=== PATIENT | male | born 1960 | race Caucasian/White ===

== ENCOUNTER 2019-06-05 19:09 | Emergency (ER) | payer MEDICARE, BC, SELFPAY ==
[2019-06-05 19:18] VITALS: BP 142/74; PULSE 97; RESP 22; TEMP 38; O2SAT 96
--- NOTE | 2019-06-05 20:12 | DI.US.S_ITS ---
PROCEDURE: US SCROTUM INDICATIONS: RIGHT TESTICULAR LUMP TECHNIQUE: Real-time scanning was performed of the scrotum and testicles, with image documentation. Color and pulse Doppler interrogation was performed of both testicles. COMPARISON: None. FINDINGS: Right: Testicle is normal in size at 2.6 x 2.7 x 2.9 cm, and homogenous in echotexture. Epididymis is normal in overall size and morphology. No varicoceles but there is a finding of increased arterial vascular flow within the right testis and a hydrocele that is moderately large in size. Overlying scrotal skin is mildly increased in thickness. Left: Testicle is normal in size at 2.3 x 3.0 x 3.5 cm, and homogeneous in echotexture. Epididymis is normal in overall size and morphology. No hydrocele or varicoceles. Overlying scrotal skin is normal in thickness. Doppler: Color and pulse Doppler demonstrate normal and symmetric arterial flow in both testicles. IMPRESSION: Right-sided orchitis with a moderately large right hydrocele, and hyperemia producing increased skin thickness along the scrotal wall on the right. No left-sided epididymitis or hydrocele is found. No suspicion for underlying testicular torsion or neoplasm. Dictated by: Saeed Trivedi M.D. on 06/06/2019 at 9:04 Approved by: Saeed Trivedi M.D. on 06/06/2019 at 9:07
--- NOTE | 2019-06-05 20:12 | ED.SKABFB ---
HPI - Skin/Abscess/Foreign Bdy General Chief complaint: Skin/Abscess/Foreign Body Stated complaint: abscess on scrotum Time Seen by Provider: 06/05/19 20:08 Source: patient Mode of arrival: wheelchair Limitations: no limitations History of Present Illness HPI narrative: Patient is a 58-year-old male who is a paraplegic and is confined to wheelchair. He states that he has had problems with decubitus pressure ulcers in the past. He states over the past couple days he has noticed a swelling in his scrotum. He has no feeling in this area. He was evaluated by his primary doctor who sent him to the emergency department for concerns of potential scrotal abscess. Related Data Previous Rx's Medication Instructions Recorded levofloxacin 500 mg PO DAILY 9 Days #9 tab 06/05/19 Allergies Allergy/AdvReac Type Severity Reaction Status Date / Time carbenicillin Allergy Difficulty Verified 06/05/19 19:22 [From Geocillin] Breathing clindamycin Allergy Rash Verified 06/05/19 19:22 Latex, Natural Rubber Allergy Rash Verified 06/05/19 19:22 Review of Systems Constitutional Denies fever(s) Cardiovascular Denies chest pain and Denies dyspnea Respiratory Denies dyspnea Genitourinary Comments: Swelling in his scrotum Neurologic Comments: No change in baseline neurologic status [facility] Medical History Paraplegia (Acute) Social History Smoking Status: Current some day smoker Social History Smoking Status: Current some day smoker Exam Initial Vital Signs Initial Vital Signs: Vital Signs Temperature 100.4 F H 06/05/19 19:18 Pulse Rate 97 H 06/05/19 19:18 Respiratory Rate 22 06/05/19 19:18 Blood Pressure 142/74 H 06/05/19 19:18 Pulse Oximetry 96 06/05/19 19:18 Const General: cooperative, comfortable and well developed Orientation: alert, awake and oriented x3 HENMT Head: normal to inspection and normocephalic Resp Effort & Inspection: normal respiratory effort Cardio Rate: regular rate External: circumcised Other: Patient with a thickened right side of the scrotum. There is a firm mass in the right hemiscrotum difficult to distinguish between the right testicle. No erythema around the area. Skin Other: Patient with a decubitus ulcer that is fairly superficial in the perineum. Neuro Other: Paraplegia Extrem General: capillary refill normal Course Orders Ordered: ED Orders 06/05/19 20:12 US scrotum Stat 06/05/19 20:53 Blood Culture Stat Complete Blood Count AUTO DIFF Stat Comprehensive Metabolic Panel Stat Lactate (Lactic Acid) Stat Lipase Stat Partial Thromboplastin Time Stat Procalcitonin Stat Prothrombin Time INR Stat Discontinued Medications Sodium Chloride (Normal Saline 0.9%) 1,000 mls @ 1,000 mls/hr IV BOLUS ONE Stop: 06/05/19 20:55 Last Admin: 06/05/19 20:30 Dose: Not Given Levofloxacin (Levaquin) 500 mg PO NOW ONE Stop: 06/05/19 23:20 Last Admin: 06/05/19 23:27 Dose: 500 mg Vital Signs - 8 hr 06/05/19 19:18 06/05/19 21:00 06/05/19 21:30 Temperature 100.4 F H Pulse Rate 97 H 97 H 95 H Respiratory Rate 22 19 19 Blood Pressure 142/74 H Blood Pressure [Right Arm] 139/72 121/66 Pulse Oximetry 96 95 91 06/05/19 22:31 Temperature Pulse Rate 85 Respiratory Rate 18 Blood Pressure Blood Pressure [Right Arm] 122/64 Pulse Oximetry 92 MDM - Skin/Abscess/Foreign Bdy Lab Data Attestation: I reviewed the patient's lab results. Result diagrams: 06/05/19 20:53 06/05/19 20:53 Lab Results 06/05/19 06/05/19 06/05/19 Range/Units 20:53 20:53 20:53 WBC 12.2 H (4.5-11.0) X10^3/uL RBC 4.43 L (4.5-5.9) X10^6/uL Hgb 13.2 L (13.5-17.5) g/dL Hct 39.4 L (41-53) % MCV 88.9 (80-100) fL MCH 29.8 (26-34) PG MCHC 33.5 (30-36) % RDW 15.4 H (11.6-14.8) % Plt Count 225 (150-400) X10^3/uL Neut % (Auto) 64.4 (50-75) % Lymph % (Auto) 22.8 L (25-40) % [place] % (Auto) 9.5 (3-14) % Eos % (Auto) 2.0 (2-4) % Baso % (Auto) 1.3 (0-2) % Neut # (Auto) 7800 H (0784-8393) /uL Lymph # (Auto) 2800 (7507-4811) /uL [place] # (Auto) 1200 H (0-900) /uL Eos # (Auto) 200 (0-450) /uL Baso # (Auto) 200 H (0-100) /uL PT 11.5 (10.1-12.7) SECONDS INR 1.0 (0.9-1.3) APTT 39 H (26.4-36.2) SECONDS Sodium (137-145) mmol/L Potassium (3.4-5.1) mmol/L Chloride (98-107) mmol/L Carbon Dioxide (22-32) mmol/L BUN (9-20) mg/dL Creatinine (0.66-1.25) mg/dL Estimated GFR (>60) mL/min BUN/Creatinine Ratio (6-22) Glucose (70-100) mg/dL Lactate (0.7-2.1) mmol/L Calcium (8.4-10.2) mg/dL Total Bilirubin (0.2-1.3) mg/dL AST (17-59) IU/L ALT (21-72) IU/L Alkaline Phosphatase (38-126) U/L Total Protein (6.3-8.2) g/dL Albumin (3.5-5.0) g/dL Globulin (1.7-4.1) g/dL Albumin/Globulin Ratio (1.0-2.8) Lipase (23-300) U/L Procalcitonin < 0.05 (<0.5) ng/mL 06/05/19 06/05/19 Range/Units 20:53 20:53 WBC (4.5-11.0) X10^3/uL RBC (4.5-5.9) X10^6/uL Hgb (13.5-17.5) g/dL Hct (41-53) % MCV (80-100) fL MCH (26-34) PG MCHC (30-36) % RDW (11.6-14.8) % Plt Count (150-400) X10^3/uL Neut % (Auto) (50-75) % Lymph % (Auto) (25-40) % [place] % (Auto) (3-14) % Eos % (Auto) (2-4) % Baso % (Auto) (0-2) % Neut # (Auto) (9535-0764) /uL Lymph # (Auto) (2180-2532) /uL [place] # (Auto) (0-900) /uL Eos # (Auto) (0-450) /uL Baso # (Auto) (0-100) /uL PT (10.1-12.7) SECONDS INR (0.9-1.3) APTT (26.4-36.2) SECONDS Sodium 141 (137-145) mmol/L Potassium 3.8 (3.4-5.1) mmol/L Chloride 103 (98-107) mmol/L Carbon Dioxide 30 (22-32) mmol/L BUN 20 (9-20) mg/dL Creatinine 1.20 (0.66-1.25) mg/dL Estimated GFR > 60.0 (>60) mL/min BUN/Creatinine Ratio 16.7 (6-22) Glucose 90 (70-100) mg/dL Lactate 1.0 (0.7-2.1) mmol/L Calcium 9.0 (8.4-10.2) mg/dL Total Bilirubin 0.4 (0.2-1.3) mg/dL AST 17 (17-59) IU/L ALT 19 L (21-72) IU/L Alkaline Phosphatase 110 (38-126) U/L Total Protein 6.9 (6.3-8.2) g/dL Albumin 3.6 (3.5-5.0) g/dL Globulin 3.3 (1.7-4.1) g/dL Albumin/Globulin Ratio 1.1 (1.0-2.8) Lipase 224 (23-300) U/L Procalcitonin (<0.5) ng/mL Imaging Data Scrotal ultrasound: Radiologist's impression: Right-sided orchitis with moderate to large right hydrocele. No evidence of testicular torsion bilaterally. [facility] Narrative Medical decision making narrative: Patient does have an elevated white blood cell count however like taking procalcitonin unremarkable. Ultrasound does show orchitis and hydrocele. Will start on antibiotics given his other neurologic issues and lack of sensation in this area. No indication for emergent urologic referral. I did discuss this with the patient expressed understanding agreement plan. He was given his 1st dose of antibiotics here in the emergency department and the remainder of the course was sent to his pharmacy of choice. Discharge Plan Departure Patient Disposition: Home Clinical Impression: Orchitis of right testicle Hydrocele Qualifiers: Hydrocele type: unspecified Qualified Code(s): N43.3 - Hydrocele, unspecified Discharge Date/Time: 06/05/19 23:30 Interventions: ED Discharge Assessment Last Done: 06/05/19 23:47 Instructions: DI for Hydrocele-Adult, DI for Orchitis Activity Restrictions/Additional Instructions: Take the antibiotics as directed. Be sure to contact your primary provider tomorrow for follow-up. The remainder of the course of antibiotics was transmitted to the [facility] in [place]. Return to the emergency department for any new or worsening symptoms Prescriptions: New levofloxacin 500 mg tablet 500 mg PO DAILY 9 Days Qty: 9 RF: 0
[2019-06-05 21:00] VITALS: BP 139/72; PULSE 97; RESP 19; O2SAT 95
[2019-06-05 21:02] LABS: Add Manual Diff / Slide Review NO; Basophils Absolute Auto 200 /uL (0-100); Basophils Percent Auto 1.3 % (0-2); Eosinophils Absolute Auto 200 /uL (0-450); Hematocrit 39.4 % (41-53); Hemoglobin 13.2 g/dL (13.5-17.5); Lymphocytes Absolute Auto 2800 /uL (1100-4500); Lymphocytes Percent Auto 22.8 % (25-40); Mean Corpuscular HGB Conc 33.5 % (30-36); Mean Corpuscular Hemoglobin 29.8 PG (26-34); Mean Corpuscular Volume 88.9 fL (80-100); Monocytes Absolute Auto 1200 /uL (0-900); Monocytes Percent Auto 9.5 % (3-14); Neutrophils Absolute Auto 7800 /uL (1500-7000); Neutrophils Percent Auto 64.4 % (50-75); Platelet Count 225 X10^3/uL (150-400); Red Blood Cell Count 4.43 X10^6/uL (4.5-5.9); Red Cell Distribution Width 15.4 % (11.6-14.8); White Blood Cell Count 12.2 X10^3/uL (4.5-11.0)
[2019-06-05 21:09] LABS: Prothrombin Time 11.5 SECONDS (10.1-12.7)
[2019-06-05 21:12] LABS: PTT Partial Thromboplastin Tim 39 SECONDS (26.4-36.2)
[2019-06-05 21:17] LABS: Alanine Aminotransferase 19 IU/L (21-72); Albumin 3.6 g/dL (3.5-5.0); Albumin Globulin Ratio 1.1 (1.0-2.8); Alkaline Phosphatase 110 U/L (38-126); Aspartate Aminotransferase 17 IU/L (17-59); BUN Creatinine Ratio 16.7 (6-22); Bilirubin Total 0.4 mg/dL (0.2-1.3); Blood Urea Nitrogen 20 mg/dL (9-20); Carbon Dioxide 30 mmol/L (22-32); Chloride 103 mmol/L (98-107); Estimated Glomerular Filt Rate > 60.0 mL/min (>60); Globulin 3.3 g/dL (1.7-4.1); Glucose 90 mg/dL (70-100); HEMOLYSIS < 15 (0-50); Lipase 224 U/L (23-300); Potassium 3.8 mmol/L (3.4-5.1); Sodium 141 mmol/L (137-145); Total Protein 6.9 g/dL (6.3-8.2)
[2019-06-05 21:30] VITALS: BP 121/66; PULSE 95; RESP 19; O2SAT 91
[2019-06-05 21:33] LABS: Procalcitonin < 0.05 ng/mL (<0.5)
[2019-06-05 22:31] VITALS: BP 122/64; PULSE 85; RESP 18; O2SAT 92
[2019-06-05] MEDS: levoFLOXacin 250 MG TABLET 500 MG PO (23:27)
== END 2019-06-05 23:30 | disposition home or self-care (01) ==
PROVIDERS: Emergency Provider Emergency Medicine
DX: N45.2 Orchitis (principal); N43.3 Hydrocele, unspecified
CPT/HCPCS: 36415; 36591; 76870; 80053; 83605; 83690; 84145; 85025; 85610; 85730; 87040; 99283; 99284

== ENCOUNTER → 2019-07-11 14:37 | Outpatient (CLI) | payer MEDICARE, BC, SELFPAY ==
--- NOTE | 2019-07-11 | DI.CT.S_ITS ---
PROCEDURE: CT ABDOMEN PELVIS WO CON INDICATIONS: UTI TECHNIQUE: Noncontrast 5 mm thick sections acquired from the diaphragms to the symphysis. 5 mm coronal and sagittal reformats were then performed. For radiation dose reduction, the following was used: automated exposure control, adjustment of mA and/or kV according to patient size. COMPARISON: None. FINDINGS: Image quality: Excellent. ABDOMEN: Lung bases: There are bibasilar scars and atelectasis. Heart size is normal. Solid organs: There is a Pamela's lobe in liver. Liver is normal in size. Gallbladder is normal. Pancreas is normal in contours. Spleen is normal in size. No adrenal nodules. A 2 mm stone is present in the right kidney. There is no hydronephrosis. Lucencies in the left renal hilum are probably small hepatic cysts. Kidneys are normal in size. Peritoneum and bowel: Unenhanced bowel loops demonstrate normal wall thickness and caliber. There is a moderate to large amount of stool in colon. Rectum may be thickened. No free fluid or air. Nodes and vessels: No retroperitoneal or mesenteric adenopathy by size criteria. Aorta and inferior vena cava are normal in caliber. Miscellaneous: No ventral hernias. PELVIS: Genitourinary: There is mild bladder wall thickening. Miscellaneous: No inguinal hernias or adenopathy. Bones: No suspicious bony lesions. No vertebral body compression fractures. Scoliosis and degenerative changes in lumbar spine. Degenerative joint disease in hips bilaterally. IMPRESSION: 1. Mild bladder thickening consistent with cystitis. 2. A 2 mm nonobstructive right renal stone. 3. Suspect small parapelvic left renal cysts. 4. Rectum appears thickened. In the absence of oral and IV contrast, this finding could be caused the artifact or rectal mass. Recommend correlation with physical examination. If clinically indicated, consider endoscopic examination. 5. Scoliosis and degenerative changes in lumbar spine. 6. Bibasilar scars and atelectasis. Dictated by: Kristin Gillis M.D. on 07/11/2019 at 18:00 Approved by: Kristin Gillis M.D. on 07/11/2019 at 18:15
== END ==
PROVIDERS: Visit Provider Specialist
DX: N39.0 Urinary tract infection, site not specified (principal); N20.0 Calculus of kidney; M47.816 Spondylosis without myelopathy or radiculopathy, lumbar region; M41.9 Scoliosis, unspecified; J98.11 Atelectasis; J98.4 Other disorders of lung
CPT/HCPCS: 74176

== ENCOUNTER → 2020-07-30 16:35 | Outpatient (CLI) | payer MEDICARE, BC, SELFPAY | PROVIDERS: Visit Provider Specialist | DX: N39.0 Urinary tract infection, site not specified (principal); Z87.440 Personal history of urinary (tract) infections | CPT/HCPCS: 87077; 87086; 87186; 99214 ==

== ENCOUNTER → 2020-08-05 13:09 | Outpatient (CLI) | payer MEDICARE, BC, SELFPAY ==
[2020-08-06 07:48] LABS: COVID19 Sendout Not Detected (Not Detect)
== END ==
PROVIDERS: Visit Provider Nurse Practitioner
DX: Z11.59 Encounter for screening for other viral diseases (principal)
CPT/HCPCS: 87635

== ENCOUNTER 2020-08-08 09:32 | Day surgery (SDC) | payer MEDICARE, BC, SELFPAY ==
[2020-08-08] VITALS (12 sets, daily range): BP systolic 90–146; BP diastolic 59–81; PULSE 79–111; RESP 12–20; TEMP 37.2–38.8; O2SAT 90–96; BMI 33.2
--- NOTE | 2020-08-08 | DI.RAD.S_ITS ---
PROCEDURE: XR ABDOMEN 1V INDICATIONS: RIGHT STENT PLACEMENT TECHNIQUE: One view of the abdomen acquired. COMPARISON: None. FINDINGS: Single spot fluoroscopic image demonstrates partially visualized proximal portion of right ureteral stent Dictated by: Faisal Washburn M.D. on 08/08/2020 at 12:59 Approved by: Faisal Washburn M.D. on 08/08/2020 at 12:59
--- NOTE | 2020-08-08 10:11 | SUR.PREOP ---
Pt arrives with left toe bleeding, states he drug it on the pavement outside, the following skin area are noted, right buttocks 10 inch curved abrasion, reddened, not open, bilateral groin anal area skin abrasion, reddened, healing,, edematous bilateral calves/ankles 3+ edema
--- NOTE | 2020-08-08 10:27 | PM.PREOP ---
Pre-operative Note Interval Note History & Physical reviewed/Exam performed by Physician: Yes Changes to H&P: No
--- NOTE | 2020-08-08 10:29 | SUR.PREOP ---
Patient is COVID negative per 08/05/2020 test results
[2020-08-08] MEDS: levoFLOXacin 500 MG/100 ML PIGGYBACK 100 MG IV (10:50)
[2020-08-08] MEDS: ACETAMINOPHEN IV 1,000 MG/100 ML VIAL 400 MG IV (11:05)
--- NOTE | 2020-08-08 11:24 | SUR.OPER ---
Lithotomy on padded OR bed, head on pillow, arms secured on padded arm boards at <90 degrees abduction. Legs secured in padded yellow fins stirrups.
--- NOTE | 2020-08-08 12:40 | P.OP_ITS ---
Operative Date/Time/Diagnoses Date of procedure: 08/08/20 Time of procedure: 12:40 Pre-op diagnosis: Multiple obstructing right distal ureteral calculi Recurrent Staph UTI Procedure & Clinicians Procedure: 1. Cystoscopy and right ureteroscopic laser lithotripsy. 2. Cystoscopy and placement right ureteral stent (8 Citizen [place] by 22-32 cm). Same procedure as scheduled: Yes Indications: 1. Multiple obstructing right distal ureteral calculi. 2. History of recurrent Staph UTI. Surgeon: Lili Mcmahon Click Yes if Unassisted: Yes Anesthesia Type: General Operative Notes Findings: 1. Urethra-normal. 2. External sphincter-coapted. 3. Prostate-3.5 cm length with moderate lateral lobe hyperplasia. 4. Bladder-small amount of mobile and amorphous debris at the base. The base and lower aspect demonstrate trabeculation. Augmentation of the dome smooth walled and without lesion. 5. Right ureter at least 8 variably, oval and round calculi obstructing the distal segment. All were fragmented with the laser lithotriptor and were removed from the ureter with use of hydrostatic and mechanical agitation as well as the use of a ureteral basket. Closure Type: not applicable Specimen(s): other (Stone fragments from right distal ureter) Applied: other (8 x 22-32 cm multi-length stent) Estimated Blood Loss (mL): 0 Blood products transfused: none Tourniquet time (min): 0 Procedure in detail: The patient was positioned supine and was administered general anesthesia. He was then carefully repositioned semi lithotomy, and the lower abdomen, genitalia, and groin were prepped and draped in sterile fashion. The 22 Citizen [place] panendoscope was then introduced in lower urinary tract findings as described above. A 0.35 [place] guidewire was then advanced through a [place] catheter and then carefully insinuated into the right ureteral orifice. With great effort and considerable difficulty the [place] wire was finally able to be negotiated past the multiple right distal stones and advanced to the intrarenal collecting system. The [place] catheter was then backloaded off the [place] wire as was the chamorro endoscope. The semi rigid ureteral scope was then passed lower urinary tract and then advanced into the right ureteral orifice were upon the 1st of at least 8 stones were encountered. A 273 micron laser fiber was selected. All operating room personnel and patient were fitted with laser safety eyewear. Laser lithotripsy was then commenced. Each stone was painstakingly broken down. Some of the material was subsequently able to be cleared from the ureter using hydrostatic and mechanical agitation. A N compass basket was then selected and this was utilized to clear the ureter of the remainder of the fragments. The ureteral scope was then removed and now the wire was front loaded into the panendoscope. An 8 [place] by 22-32 cm multi-length stent was selected. This was then advanced over the [place] wire and was advanced and positioned in the right collecting system satisfactorily under direct fluoroscopic guidance. NO RETRIEVAL LINE WAS LEFT ATTACHED. With the assistance of and Lynda evacuator, the remainder of stone fragments in burden were evacuated from the bladder lumen. The bladder was drained a final time and allinstrumentation was removed a final time. The patient was then repositioned supine, awakened, and transferred to [facility] in stable condition. Complications: none Post-operative Condition: stable Disposition: PACU Plan for aftercare: Discharge home
--- NOTE | 2020-08-08 13:07 | SUR.PHASEI ---
Pt arrived, needing intermittent chin support for patent airway, now breathing on own, nasal cannula in place, denies pain, no nausea.
--- NOTE | 2020-08-08 13:53 | SUR.PHASEI ---
BP low, 90's systolic, bladder scan done, 130ml shown,Dr. Casey informed of VS, and temp. Bolus ordered 500ml LR. Bolus being given, BP 105/60.
--- NOTE | 2020-08-08 14:03 | SUR.PHASEI ---
Pt injured left great toe on his way her, l great toenail thickened and skin bloodied, area cleansed with saline and allevyn dressing applied, pt stated he is being followed by the wound care clinic and will have them check on it. Dr. Casey in to see pt, aware of vs, states ok to give lasix.
[2020-08-08] MEDS: FUROSEMIDE 40 MG/4 ML VIAL 20 MG IV (14:07)
--- NOTE | 2020-08-08 16:55 | SUR.PHASEII ---
late entry: Pt assisted with self cath, 275ml out, no stones obtained. D/C instructions discussed with both, both voiced an understanding. Pt left when ready and left in stable condition. Assisted to dress by JAMES Quezada and assisted to car by Pilar RAMIREZ and MARICRUZ Sher
[2020-08-27 14:03] LABS: Ca oxalate monohydr 30%; Size 12x8 mm; Stone Analysis Source RIGHT URETER
[2020-08-27 14:04] LABS: Carbonate Apatite 30%; Magnesium ammon phos 40%; Photo SEE EMR
== END 2020-08-08 14:50 | disposition home or self-care (01) ==
LOC: OR 09:38 → AC 09:39
PROVIDERS: Referring Provider Specialist; Visit Provider Specialist
PROC: (CPT 52356; principal; 2020-08-08 10:45)
DX: N20.1 Calculus of ureter (principal); F17.210 Nicotine dependence, cigarettes, uncomplicated; I10 Essential (primary) hypertension; N40.0 Benign prostatic hyperplasia without lower urinary tract symptoms; Z87.440 Personal history of urinary (tract) infections
CPT/HCPCS: 52356; 74018; 76000; 82365; J0131; J1100; J1940; J1956; J2250; J2405; J2704; J3010

== ENCOUNTER → 2020-08-28 15:47 | Outpatient (CLI) | payer MEDICARE, BC, SELFPAY ==
--- NOTE | 2020-08-28 15:54 | DI.RAD.S_ITS ---
PROCEDURE: XR KUB INDICATIONS: Kidney stones TECHNIQUE: One view of the abdomen acquired. COMPARISON: None. FINDINGS: Surgical changes and devices: Right ureteral stent. Bowel: Bowel gas pattern is normal. Soft tissues: No suspicious abdominal calcifications. Visualized solid organ contours appear normal in size. Bones: Lumbar spondylosis and bilateral hip joint degeneration. There is diffuse osteopenia. IMPRESSION: Right ureteral stent. No radiographically visible urolithiasis. Dictated by: Faisal Washburn M.D. on 08/28/2020 at 16:40 Approved by: Faisal Washburn M.D. on 08/28/2020 at 16:42
== END ==
PROVIDERS: PCP Internal Medicine; Referring Provider Specialist; Visit Provider Specialist
DX: Z01.818 Encounter for other preprocedural examination (principal); N20.0 Calculus of kidney; M47.816 Spondylosis without myelopathy or radiculopathy, lumbar region; M16.0 Bilateral primary osteoarthritis of hip; M85.80 Other specified disorders of bone density and structure, unspecified site; Z96.0 Presence of urogenital implants; Z87.440 Personal history of urinary (tract) infections
CPT/HCPCS: 74018; 99215

== ENCOUNTER → 2020-09-10 13:21 | Outpatient (CLI) | payer MEDICARE, BC, SELFPAY ==
[2020-09-11 02:25] LABS: COVID19 Sendout Not Detected (Not Detect)
== END ==
PROVIDERS: PCP Internal Medicine; Visit Provider Nurse Practitioner
DX: Z01.812 Encounter for preprocedural laboratory examination (principal)
CPT/HCPCS: 87635

== ENCOUNTER 2020-09-12 08:56 | Day surgery (SDC) | payer MEDICARE, BC, SELFPAY ==
--- NOTE | 2020-09-12 | DI.RAD.S_ITS ---
PROCEDURE: XR ABDOMEN 1V INDICATIONS: RIGHT KIDNEY STONE TECHNIQUE: One view of the abdomen acquired. COMPARISON: [facility], RG, CT ABDOMEN/PELVIS WITHOUT CONTRAST, 07/24/2020, 14:59. [facility], CR, XR KUB, 09/12/2020, 8:56. [facility], CR, XR KUB, 08/28/2020, 16:00. [facility], CR, XR ABDOMEN 1V, 08/08/2020, 11:33. FINDINGS: Right ureteral catheter with the tip in the right renal pelvis. Contrast is filling the renal collecting system. IMPRESSION: Fluoroscopic guidance for right ureteral catheterization. Dictated by: John Moya M.D. on 09/12/2020 at 14:01 Approved by: John Moya M.D. on 09/12/2020 at 14:03
--- NOTE | 2020-09-12 06:00 | DI.RAD.S_ITS ---
PROCEDURE: XR KUB INDICATIONS: Renal calculi TECHNIQUE: One view of the abdomen acquired. COMPARISON: [facility], RG, CT ABDOMEN/PELVIS WITHOUT CONTRAST, 07/24/2020, 14:59. [facility], CR, XR ABDOMEN 1V, 08/08/2020, 11:33. [facility], RG, XR ABDOMEN 1V, 08/18/2020, 13:21. [facility], CR, XR KUB, 08/28/2020, 16:00. FINDINGS: Surgical changes and devices: A right ureteral stent is seen, with the ends of the stent in the expected locations Bowel: Bowel gas pattern is normal. Soft tissues: No suspicious abdominal calcifications. Visualized solid organ contours appear normal in size. Bones: No suspicious bony lesions. Remote pubic rami fractures are seen. Osteopenia is seen. IMPRESSION: No definite stones are seen by plain film. Stable right ureteral stent. Remote pubic rami fractures. Osteopenia is seen. Dictated by: Vadim Cordoba M.D. on 09/12/2020 at 8:26 Approved by: Vadim Cordoba M.D. on 09/12/2020 at 8:28
[2020-09-12 09:49] VITALS: BP 117/73; PULSE 85; RESP 12; TEMP 36.9; O2SAT 99
--- NOTE | 2020-09-12 09:50 | PM.PREOP ---
Pre-operative Note Interval Note History & Physical reviewed/Exam performed by Physician: Yes Changes to H&P: No
[2020-09-12] MEDS: LACTATED RINGERS 1,000 ML 42 ML IV (10:03)
--- NOTE | 2020-09-12 10:17 | SUR.OPER ---
Lithotomy on padded OR bed, head on pillow, arms secured on padded arm boards at <90 degrees abduction. Legs secured in padded yellow fins stirrups.
[2020-09-12] MEDS: CIPROFLOXACIN 400 MG/200 ML PIGGYBACK 200 MG IV (10:24)
[2020-09-12] MEDS: BELLADONNA/OPIUM SUPPOSITORIES 1 EACH PR (10:58)
[2020-09-12] MEDS: IOPAMIDOL 15 ML VIAL INJ (10:59)
[2020-09-12] MEDS: PHENYLEPHRINE HCL INJ (11:17)
[2020-09-12] MEDS: NACL INJ (11:17)
--- NOTE | 2020-09-12 12:19 | SUR.OPER ---
TFL laser time 12.09 min 14.47kj
--- NOTE | 2020-09-12 12:26 | P.OP_ITS ---
Operative Date/Time/Diagnoses Date of procedure: 09/12/20 Time of procedure: 12:26 Pre-op diagnosis: 1. Multiple right lower pole renal calculi. 2. Retained right ureteral stent. Post-op diagnosis: other (3. Multiple right distal ureteral calculi. ) Procedure & Clinicians Procedure: 1. Right ureteroscopic intrarenal and ureteral laser lithotripsy 2. Cystoscopy and right ureteral stent exchange. Same procedure as scheduled: Yes Indications: 1. Multiple right lower pole renal calculi. 2. Retained right ureteral stent. Surgeon: Lili Mcmahon Click Yes if Unassisted: Yes Anesthesia Type: General Operative Notes Findings: 1. Urethra-normal caliber without stricture or lesion. 2. External sphincter-coapted. 3. Prostate-4 cm length with moderate lateral lobe hyperplasia. 4. Bladder-severe trabeculation of the [place] bladder and smooth epithelium of the augmentation of the dome. There was associated bullous edema and erythema of the right ureteral orifice and surrounding area in association with a right ureteral stent already developing encrustations. 5. Right ureter-multiple oval and round calculi were encountered on withdrawal of the ureteral scope it conclusion of the case within the distal right ureter. These were fragmented and cleared using the laser. 6. Right fhchcd-[id number]-yu-moderate intra renal collection system dilation. There were multiple rounded normal calculi and several of the lower pole calices. These were treated systematically using the 200 micron laser fiber. Closure Type: not applicable Specimen(s): other (Multiple stone fragments from right ureter.) Applied: other (Six [place] by 22-32 cm multi-length stent.) Estimated Blood Loss (mL): 0 Blood products transfused: none Tourniquet time (min): 0 Procedure in detail: Following placement of short-acting spinal anesthetic the patient was positioned supine administered general anesthesia. He was then repositioned semi lithotomy and the lower abdomen, genitalia, perineum were prepped and draped in sterile fashion. A 22 [place] panendoscope was then passed lower urinary tract with the findings as described above. A foreign body grasper was then utilized to engage the right ureteral stent bring it out to the aidee meatal area. Attempts to pass a 0.35 guidewire were unsuccessful due to encrustations in the lumen of the stent. Therefore the stent was removed in its entirety another panendoscope was replaced a 0.35 guidewire was then advanced into the right collecting system under direct fluoroscopic guidance. Now a dual-lumen ureteral access catheter was advanced over the guidewire under direct and fluoroscopic guidance in a retrograde pyelogram was then performed through the 2nd channel. A 2nd 0.35 guidewire was then advanced through the accessory channel under fluoroscopic guidance the dual lumen ureteral access sheath was then backloaded off both wires period 1 of the wires was then secured to the drape. The other was utilized to advance the flexible ureteral scope with its tip position within the intrarenal collecting system. This guidewire was then removed and careful inspection of the intrarenal collecting system was undertaken with the findings as described above. A 200 m icron laser fiber was then selected. All operating room personnel and patient were fitted with laser safety eyewear. The intrarenal calices were carefully inspected and laser fragmentation of all visualized stones was conducted satisfactorily. The flexible ureteral scope was then gently withdrawn with careful inspection of the entire right collecting system. Numerous round in a oval calculi were encountered in the distal right ureter. These too, were laser fragmented and cleared for confines of the distal ureteral lumen. The flexible ureteral scope was and removed in its entirety. The panendoscope was then front loaded on the guidewire advanced and lower urinary tract. A 6 [place] by 22-32 cm multi-length stent was then selected and was then advanced over the guidewire under direct and fluoroscopic guidance. A RETRIEVAL LINE WAS LEFT ATTACHED. Bladder was then drained completely and all instrumentation was removed a final time. Patient was then repositioned in supine, awakened, and transferred to [facility] stable condition. Complications: none Post-operative Condition: stable Disposition: PACU Plan for aftercare: Discharge home
[2020-09-12 12:30] VITALS: BP 110/67; PULSE 66; RESP 11; TEMP 36.5; O2SAT 99
[2020-09-12 12:36] VITALS: BP 116/64; PULSE 84; RESP 16; TEMP 36; O2SAT 99
[2020-09-12 12:41] VITALS: BP 121/73; PULSE 68; RESP 11; TEMP 36.1; O2SAT 99
[2020-09-12 12:46] VITALS: BP 103/56; PULSE 68; RESP 14; TEMP 36.1; O2SAT 98
[2020-09-12] MEDS: FUROSEMIDE 20 MG/2 ML VIAL IV (12:50)
[2020-09-12 13:15] VITALS: BP 105/61; PULSE 80; RESP 99; TEMP 36.6; O2SAT 16
--- NOTE | 2020-09-12 13:47 | SUR.PHASEII ---
Pt maintained on left side with head down until 1325. Pt self cathed for 900 ml light, pink urine without clots. Per Dr ness, urine did not need to be strained.
[2020-09-22 14:25] LABS: Stone Analysis Source RIGHT URETER
[2020-09-22 14:26] LABS: Size 2X3
== END 2020-09-12 14:00 | disposition home or self-care (01) ==
PROVIDERS: PCP Internal Medicine; Referring Provider Specialist; Visit Provider Specialist
PROC: (CPT 52356; principal; 2020-09-12 10:45)
DX: N20.0 Calculus of kidney (principal); N20.1 Calculus of ureter; Z87.440 Personal history of urinary (tract) infections; Z96.0 Presence of urogenital implants
CPT/HCPCS: 52356; 74018; 76000; 82365; J0744; J1940; J2250; J2704

== ENCOUNTER → 2020-09-25 15:03 | Outpatient (CLI) | payer MEDICARE, BC, SELFPAY ==
--- NOTE | 2020-09-25 15:04 | DI.CT.S_ITS ---
PROCEDURE: CT KIDNEY URETER BLADDER (KUB) INDICATIONS: stent TECHNIQUE: Noncontrast 5 mm thick sections acquired from the diaphragms to the symphysis. 5 mm thick coronal and sagittal reformats were then performed. For radiation dose reduction, the following was used: automated exposure control, adjustment of mA and/or kV according to patient size. COMPARISON: [facility], RG, CT ABDOMEN/PELVIS WITHOUT CONTRAST, 07/24/2020, 14:59. [facility], CT, CT ABDOMEN PELVIS WO CON, 07/11/2019, 15:16. FINDINGS: Image quality: Excellent. Lung bases: Trace atelectasis is present in the dependent right lung base. Urinary system: Both kidneys are normal in size. There are multiple punctate nonobstructing right calculi, the largest of which measures 4 mm in diameter. There is a right double-J ureteral stent within the proximal right ureter. No right hydronephrosis or hydroureter. The distal aspect of the stent is within the posterior bladder. No hydronephrosis or perinephric fat stranding. No left nephrolithiasis, hydronephrosis, or hydroureter. The bladder is irregularly marginated and thick-walled as before suggesting a neobladder. Gas is present within the bladder suggesting recent instrumentation. Other solid organs: Liver is normal in size. Focal fat is noted near the false form ligament, unchanged from the study dated July 11, 2019. A 2 mm calculus is layered in the gallbladder fundus. No gallbladder wall thickening or pericholecystic fluid. Pancreas is normal in contours. Spleen is normal in size. No adrenal nodules. Peritoneum and bowel: Unenhanced bowel loops demonstrate normal wall thickness and caliber. No free fluid or air. Nodes and vessels: No retroperitoneal or mesenteric adenopathy by size criteria. Aorta and inferior vena cava are normal in caliber. There are scattered atheromatous calcifications throughout the aorta and iliac arteries bilaterally. Abdominal wall: No ventral hernias. Pelvis: No free pelvic fluid. No inguinal hernias or adenopathy. Bones: No suspicious bony lesions. No vertebral body compression fractures. IMPRESSION: 1. Nonobstructive right nephrolithiasis. 2. Appropriately placed right double-J ureteral stent. No hydronephrosis. 3. Within the bladder likely secondary to recent instrumentation. However clinical correlation is recommended as gas-forming infection cannot be excluded. Dictated by: Hetal Andrade M.D. on 09/25/2020 at 15:02 Approved by: Hetal Andrade M.D. on 09/25/2020 at 15:09
== END ==
PROVIDERS: PCP Internal Medicine; Referring Provider Specialist; Visit Provider Specialist
DX: N20.0 Calculus of kidney (principal); Z96.0 Presence of urogenital implants
CPT/HCPCS: 74176

== ENCOUNTER → 2020-10-08 14:31 | Outpatient (CLI) | payer MEDICARE, BC, SELFPAY ==
[2020-10-08 15:09] LABS: COVID19 -Nasal RAPID Negative (Negative)
== END ==
PROVIDERS: PCP Internal Medicine; Visit Provider Specialist
DX: Z11.59 Encounter for screening for other viral diseases (principal)
CPT/HCPCS: 87635; C9803

== ENCOUNTER 2020-10-10 11:11 | Day surgery (SDC) | payer MEDICARE, BC, SELFPAY ==
[2020-10-10 13:45] VITALS: BP 132/80; PULSE 81; RESP 16; TEMP 37.2; O2SAT 96; BMI 33.2
[2020-10-10] MEDS: LACTATED RINGERS 1,000 ML 42 ML IV (14:09)
--- NOTE | 2020-10-10 14:54 | SUR.OPER ---
Lithotomy on padded OR bed, head on pillow, arms secured on padded arm boards at <90 degrees abduction. Legs secured in padded yellow fins stirrups.
[2020-10-10] MEDS: VANCOMYCIN 1,000 MG/200 ML PIGGYBACK 200 MG IV (15:30)
--- NOTE | 2020-10-10 15:37 | PM.HP.1 ---
History of Present Illness History of Present Illness Date Patient Seen: 10/10/20 Time Patient Seen: 15:00 Chief complaint: CYSTO Narrative: The patient is a 59-year-old white male with a long history of T7-T8 spinal cord injury and resultant paraplegia. He is status post left ureteroscopic laser lithotripsy for large distal right ureteral stone burden on 08/08/2020. He then return to OR on 09/12/2020 and underwent intrarenal laser lithotripsy of large stone burden. He has done surprisingly well with both procedures with no recovery issues or complications. He returns today for cystoscopy and right ureteral stent removal. Patient History Medical History History of recurrent UTI (urinary tract infection) (Acute) History of recurrent UTI (urinary tract infection) (Acute) History of UTI (Acute) HTN (hypertension) (Acute) Hx of decubitus ulcer (Acute) Hydrocele (Acute) Neurogenic bladder (Acute) Neurogenic bladder (Acute) Neuromuscular dysfunction of bladder (Acute) Paraplegia (Acute) Renal calculus, right (Acute) Renal calculus, right (Acute) Retained ureteral stent (Acute) Right nephrolithiasis (Acute) Right ureteral calculus (Acute) SCI (spinal cord injury) (Acute 1975) Urinary calculi (Acute) Surgical History Hx of cystoscopy (Acute 08/08/20) Hx of cystoscopy (Acute 09/12/20) Family & Social History Social History: household members none Tobacco & Substance use: Tobacco type cigarettes Smoking Status Current every day smoker Smoking packs per day 1 alcohol intake never Substance Use Type does not use Meds Home Medications and Allergies Home Medications Medication Instructions Recorded Confirmed Type amlodipine 5 mg tablet 10 mg PO DAILY 06/06/20 10/10/20 History furosemide 20 mg tablet 10 mg PO QAM 06/06/20 10/10/20 History gabapentin 800 mg tablet 900 mg PO TID 06/06/20 10/10/20 History lisinopril 40 mg tablet 40 mg PO DAILY 06/06/20 10/10/20 History solifenacin 10 mg tablet 10 mg PO DAILY 06/06/20 10/10/20 History baclofen 20 mg tablet 20 mg PO TID 06/10/20 10/08/20 History Allergies Allergy/AdvReac Type Severity Reaction Status Date / Time carbenicillin Allergy Difficulty Verified 10/10/20 13:40 [From Geocillin] Breathing clindamycin Allergy Rash Verified 10/10/20 13:40 Latex, Natural Rubber Allergy Rash Verified 10/10/20 13:40 Review of Systems Constitutional Constitutional: Reports system reviewed and no additional complaints, except as documented Exam Vital Signs (past 8 hours): - 10/10/20 13:45 Temperature 99 F Pulse Rate 81 Respiratory Rate 16 Blood Pressure 132/80 Pulse Oximetry 96 Oxygen Delivery Method Room Air Narrative Exam Narrative: He is well-developed, well-nourished, and talkative as usual. He is in no acute distress. Chest-equal, clear, nonlabored expansion bilaterally. Heart-regular rhythm in regular rate. No extra sounds heard. Abdomen-hypoactive bowel sounds. Distended. No organomegaly Assessment & Plan Assessment and plan (1) Retained ureteral stent: Status: Acute Assessment & Plan narrative: Plan: 1. Informed consent obtained today for cystoscopy/removal right ureteral stent.
[2020-10-10 15:41] VITALS: BP 132/80; PULSE 83; RESP 24; TEMP 37.2; O2SAT 99
--- NOTE | 2020-10-10 15:46 | P.OP_ITS ---
Operative Date/Time/Diagnoses Date of procedure: 10/10/20 Time of procedure: 15:46 Pre-op diagnosis: Retained right ureteral stent Post-op diagnosis: same Procedure & Clinicians Procedure: Cystoscopy and removal right ureteral stent Same procedure as scheduled: Yes Indications: 1. Retained right ureteral stent Surgeon: Lili Mcmahon Click Yes if Unassisted: Yes Anesthesia Type: None Operative Notes Findings: 1. Urethra-normal caliber no strictures or lesions. 2. External sphincter-coapted. 3. Prostate-4+ cm length with elevated median bar in moderately obstructing lateral lobes. 4. Bladder-status post augmentation. Surprisingly, no fragments of calculus observed. Minimal amount of mucus. Closure Type: not applicable Specimen(s): none sent Estimated Blood Loss (mL): 0 Blood products transfused: none Tourniquet time (min): 0 Procedure in detail: The patient was positioned in supine on every room table and then was repositioned semi lithotomy with lower extremity supports attached. The lower abdomen, genitalia, and groin were then prepped and draped in sterile fashion. The 22 Sinhala panendoscope was then passed lower urinary tract with the findings as described above. The distal end of the right ureteral stent was visualized and engaged with a foreign body grasper. It was then subsequently removed without incident. Patient was then repositioned supine, transferred to [place], and transferred to recovery room in stable condition. Complications: none Post-operative Condition: stable Disposition: PACU Plan for aftercare: GISSELLE
--- NOTE | 2020-10-10 16:07 | SUR.PHASEII ---
pt had no sedation was kept for obsevation and to administer vancomycin post procedure
[2020-10-10 16:35] VITALS: BP 114/87; PULSE 80; RESP 20; TEMP 36.4; O2SAT 97
== END 2020-10-10 16:40 | disposition home or self-care (01) ==
PROVIDERS: PCP Internal Medicine; Referring Provider Internal Medicine; Visit Provider Specialist
PROC: (CPT 52310; principal; 2020-10-10 12:45)
DX: Z46.6 Encounter for fitting and adjustment of urinary device (principal); Z87.440 Personal history of urinary (tract) infections; Z87.828 Personal history of other (healed) physical injury and trauma; G82.20 Paraplegia, unspecified; S24.103S Unspecified injury at T7-T10 level of thoracic spinal cord, sequela; I10 Essential (primary) hypertension; N31.9 Neuromuscular dysfunction of bladder, unspecified
CPT/HCPCS: 52310

== ENCOUNTER → 2020-11-19 14:39 | Outpatient (CLI) | payer MEDICARE, BC, SELFPAY ==
--- NOTE | 2020-11-19 14:40 | DI.CT.S_ITS ---
PROCEDURE: CT KIDNEY URETER BLADDER (KUB) INDICATIONS: kidney stones TECHNIQUE: Noncontrast 5 mm thick sections acquired from the diaphragms to the symphysis. 5 mm thick coronal and sagittal reformats were then performed. For radiation dose reduction, the following was used: automated exposure control, adjustment of mA and/or kV according to patient size. COMPARISON: [facility], RG, CT ABDOMEN/PELVIS WITHOUT CONTRAST, 07/24/2020, 14:59. [facility], CT, CT KIDNEY URETER BLADDER (KUB), 09/25/2020, 15:06. FINDINGS: Image quality: Excellent. Lung bases: Lung bases are clear. Heart size is normal. Urinary system: Both kidneys are normal in size. There are three punctate calcifications within the right kidney. This number has markedly decreased compared to prior exam. Previous ureterovesicular stent has been removed. There is minimal prominence of the right renal collecting system and proximal ureter. However, this is felt to be secondary to narrowing of the ureter as it courses between the superior aspect of the psoas muscle and the right common iliac artery and bowel loops. No hydronephrosis or perinephric fat stranding. Both ureters appear non-dilated throughout their expected courses. Bladder wall thickness is normal; no calcified bladder stones. Other solid organs: Liver is normal in size. Gallbladder is unremarkable . Pancreas is normal in contours. Spleen is normal in size. No adrenal nodules. Peritoneum and bowel: Unenhanced bowel loops demonstrate normal wall thickness and caliber. No free fluid or air. Moderate stool is present. Nodes and vessels: No retroperitoneal or mesenteric adenopathy by size criteria. Aorta and inferior vena cava are normal in caliber. Abdominal wall: Containing ventral hernia is present without incarceration or strangulation. Pelvis: No free pelvic fluid. No inguinal hernias or adenopathy. Bones: No suspicious bony lesions. No vertebral body compression fractures. IMPRESSION: 1. Markedly reduced number of right renal calcifications. 2. Minimal prominence of the right renal collecting system proximal ureter suspected to be secondary to ureteral course as described above. No visualized source of obstruction. Dictated by: Nina Cesar M.D. on 11/19/2020 at 15:43 Approved by: Nina Cesar M.D. on 11/19/2020 at 16:02
== END ==
PROVIDERS: PCP Internal Medicine; Referring Provider Specialist; Visit Provider Specialist
DX: N20.0 Calculus of kidney (principal)
CPT/HCPCS: 74176

== ENCOUNTER → 2021-03-01 19:46 | Outpatient (CLI) | payer MEDICARE, BC, SELFPAY ==
--- NOTE | 2021-03-01 19:48 | DI.RAD.S_ITS ---
PROCEDURE: XR KUB INDICATIONS: Kidney stones TECHNIQUE: One view of the abdomen acquired. COMPARISON: [facility], CT, CT KIDNEY URETER BLADDER (KUB), 11/19/2020, 14:50. [facility], CR, XR KUB, 09/12/2020, 8:56. [facility], CR, XR KUB, 08/28/2020, 16:00. FINDINGS: Surgical changes and devices: None. Bowel: Bowel gas pattern is normal. Soft tissues: No suspicious abdominal calcifications are found. Review of the prior most recent CT scanning 11/19/20 identified 3 right renal punctate nonobstructive calculi, which cannot be identified on the current plain film imaging. There is stool within the colon overlying this area and relative prominence of gas filling of the colon in addition.. Visualized solid organ contours appear normal in size. Bones: No suspicious bony lesions. IMPRESSION: The 3 punctate right renal collecting system calculi which were nonobstructive during CT scanning 11/19/20 cannot be identified by plain film imaging at this time. A ureteral or bladder region calculus also is not identified. Dictated by: Saeed Trivedi M.D. on 03/02/2021 at 9:05 Approved by: Saeed Trivedi M.D. on 03/02/2021 at 9:09
== END ==
PROVIDERS: PCP Internal Medicine; Referring Provider Specialist; Visit Provider Specialist
DX: N20.0 Calculus of kidney (principal)
CPT/HCPCS: 74018

== ENCOUNTER → 2021-05-08 15:28 | Outpatient (CLI) | payer MEDICARE, BC, SELFPAY ==
--- NOTE | 2021-05-08 15:39 | DIET.PN ---
Dietary Progress Note Assessment: 60y M referred to nutrition from urology for kidney stones. Pt is paraplegic and totally lacks sensation from the chest down x40y. Pt reports hasn't been taking care of self x6y. Pt didn't realize he had kidney stones because of paraplegia but had 5 in ureter and many in kidneys but didn't feel any of it last fall 2019. Pt has edema in feet, attends wound care because he often cuts his toes on his cabinets in his wheelchair. Pt takes probiotics and 500mg Vit C bid, pt smokes cigarettes daily Pt has concerns about GI health-always liquid pasty or runny bowel movement, pt does not see food particles in stool. Pt doesn't feel hungry until late afternoon and generally eats one very large meal per day. Usual Day: not sleeping well because cannot get comfortable at night. drinks black coffee usually 4c per day usually in morning and maybe one in afternoon smokes cigarettes makes spaghetti, stews, 1# meat c veggies and a yam or rice if doesn't cook: pb&j, cheese and crackers, can progresso soup, grilled cheese sandwich sometimes has a lot of ice cream afterwards-java chip or nut ice cream sometimes will do pineapple instead then drinks water and cigarettes until going to bed Grocery shopping: buys same things usually each week broccoli, artichokes, green beans, corn on cob, asparagus, avocado ground beef, pork shoulder steaks, gonzalez chops, chicken thighs apples, pineapple, and nectarines cereal c milk miltons everything crackers, sometimes nuts sometimes frozen lasagnas chips-Kettle [employer] Goals: wants to exercise daily wants to eat a salad daily wants to cut back on meat by half wants to eat less rice (usually does whole bag of [employer] rice) feels he needs a purpose so looking into purchasing a green house to raise plants Pt has intentionally been drinking more water to reduce his risk of kidney stones. Nutrition Related Kidney Stone Factors: Pt supplementing 1,000mg Vit C daily Pt has low intake dietary calcium Pt has high intake salty ultraprocessed foods Pt has low intake F/V Pt has high intake animal meat (1#/meal) Nutrition Diagnosis: undesirable food choices r/t factors leading to kidney stone formation aeb pt having repeat kidney stones, pt has high intake supplemented Vit C, salty ultraprocessed foods, animal protein and low intake dietary calcium, F/V, and citrate in diet. Interventions: 1. Reinforced pts behavior changes around fluid intake. Pt has made this an important part of his day. 2. Encouraged pt to reduce by half or eliminate supplemented Vitamin C (pt also taking MVI which can be continued) and replace it with 2oz pure lemon or mi'kmaq juice diluted in water daily. This will help to lower oxylate levels in urine while increasing citrate levels. Pt on board with this change. 3. Encouraged pt to decrease intake ultraprocessed foods and instead focus on easy to prepare items. This will not only help his kidney stone risk, but also his GI health and BLE. 4. Encouraged pt to cut meat portion in half and add a salad to each dinner. Pt suggested this change and RD supports it. 5. Encouraged pt to use Hunger Scale to time meals rather than eating only one large meal per day. Monitoring/Evaluations: f/u in 2mo to assess progress and problem solve barriers.
== END ==
PROVIDERS: PCP Internal Medicine; Referring Provider Internal Medicine; Visit Provider Internal Medicine
DX: N20.0 Calculus of kidney (principal); G82.20 Paraplegia, unspecified; Z71.3 Dietary counseling and surveillance
CPT/HCPCS: 97802

== ENCOUNTER → 2021-08-04 10:31 | Outpatient (CLI) | payer MEDICARE, BC, SELFPAY ==
--- NOTE | 2021-08-04 10:36 | DI.RAD.S_ITS ---
PROCEDURE: XR KUB INDICATIONS: Kidney stones hx TECHNIQUE: One view of the abdomen acquired. COMPARISON: [facility], CT, CT KIDNEY URETER BLADDER (KUB), 11/19/2020, 14:50. [facility], CR, XR KUB, 03/01/2021, 19:58. FINDINGS: Surgical changes and devices: None. Bowel: Large amount of stool is present. No definite transition point. Soft tissues: 5 mm left abdominal calcification, technically indeterminate. Bones: Diffuse spondylosis and facet arthropathy. Extensive heterotopic ossification seen in the region of the right lower bony pelvis. There is bilateral hip joint degeneration. IMPRESSION: Markedly suboptimal evaluation secondary to large amount of stool and bowel gas. 5 mm calcification projects in the left abdomen possibly nephrolithiasis versus debris in bowel. Further evaluation with CT KUB could be performed as clinically necessary. Dictated by: Faisal Washburn M.D. on 08/04/2021 at 12:54 Approved by: Faisal Washburn M.D. on 08/04/2021 at 12:58
[2021-08-04 10:55] LABS: RBC Urine None Seen (0-5/HPF)
[2021-08-04 12:51] LABS: Appearance Urine UA SL CLOUDY; Bilirubin Urine UA NEGATIVE (NEGATIVE); Color Urine UA YELLOW; Glucose Urine UA NEGATIVE (Negative); Ketones Urine UA TRACE (NEGATIVE); Leukocyte Esterase Urine UA 2+ (NEGATIVE); Nitrite Urine UA POSITIVE (Negative); Occult Blood Urine UA NEGATIVE (Negative); Protein Urine UA TRACE (Negative); Specific Gravity Urine UA 1.015 (1.000-1.035)
[2021-08-04 13:04] LABS: Bacteria Urine Many (>30); Culture Indicated Urine Cult Not Indicated; Squamous Epithelial Cell Urine >30 /HPF (0-5/HPF); WBC Urine 30-100/HPF (0-5/HPF)
== END ==
PROVIDERS: PCP Internal Medicine; Referring Provider Specialist; Visit Provider Specialist
DX: N31.9 Neuromuscular dysfunction of bladder, unspecified (principal); Z87.440 Personal history of urinary (tract) infections; Z87.442 Personal history of urinary calculi; N39.0 Urinary tract infection, site not specified; Z96.0 Presence of urogenital implants
CPT/HCPCS: 74018; 81001; 99214